=== PATIENT | female | born 1990 | race Caucasian/White ===

== ENCOUNTER → 2018-09-14 | Outpatient (CLI) | payer OTHER ==
--- NOTE | 2018-09-14 08:22 | USB ---
Reason for exam: clinical finding. Physical Findings: Nurse did not find any significant physical abnormalities on exam. US Breast LT Left complete breast ultrasound includes all four quadrants, the retroareolar region and axilla. Finding demonstrates no cystic or solid lesion seen greater than 0.50cm. No suspicious finding. These results were verbally communicated with the patient and result sheet given to the patient on 09/14/18. ASSESSMENT: Negative, BI-RAD 1 RECOMMENDATION: Routine screening mammogram of both breasts at age 40. (or sooner if clinically indicated) Manage patient on a clinical basis.
== END | disposition home or self-care (01) ==
LOC: RADUSWWP 06:49
PROVIDERS: ATTEND Family Medicine
DX: N64.59 Other signs and symptoms in breast (principal)

== ENCOUNTER → 2020-08-11 | Outpatient (CLI) | payer OTHER ==
--- NOTE | 2020-08-11 15:07 | US ---
EXAMINATION TYPE: Ultrasound OB <= 14 wks transvag DATE OF EXAM: 08/11/2020 2:32 PM COMPARISON: NONE CLINICAL HISTORY: 30-year-old female O76 ABSENT HEART SOUNDS. EXAM PERFORMED: Transabdominal (TA) and Transvaginal (TV) FINDINGS: EXAM MEASUREMENTS: GESTATIONAL AGE / DATING Physician Established: Not yet established Dates by LMP: 05/21/2020 (11 weeks/5 days) EDC: 02/25/2021 Dates by First Scan: No previous, this is first scan Dates by Current Scan for: ( 9 weeks/5 days) EDC: 03/11/2021 MATERNAL ANATOMY Uterus: 7.9 x 5.5 x 5.7 cm Right Ovary: 2.4 x 1.8 x 2.1 cm Left Ovary: 2.3 x 1.3 x 1.5 cm Post CDS / Adnexa: wnl Presence of free fluid: no Presence of corpus luteal cyst: no Presence of subchorionic bleed: no GESTATION / SURVEY CRL: 2.8 cm ( 9 weeks/5 days) Heart Rate: No heart tones. IUP: Demise Beta HcG (if available): Not available at this time IMPRESSION: No cardiac activity on real-time scanning, M-mode Doppler, or color Doppler assessment. Size is also 2 weeks smaller/discrepant with dates (11 weeks 5 days by LMP versus 9 weeks 5 days by CRL). Ultrasound findings in keeping with demise. Corroborate with declining beta-hCGs. MTDD
== END | disposition home or self-care (01) ==
LOC: RADUSWWP 14:11
PROVIDERS: ATTEND Obstetrics & Gynecology Obstetrics
DX: O26.841 Uterine size-date discrepancy, first trimester (principal); O36.4XX0 Maternal care for intrauterine death, not applicable or unspecified; Z3A.09 9 weeks gestation of pregnancy
CPT/HCPCS: 76801; 76817

== ENCOUNTER 2020-08-12 14:46 | Day surgery (SDC) | payer OTHER ==
[2020-08-12] MEDS ORDERED: ONDANSETRON 4 MG/2 ML VIAL ONE (15:16)
[2020-08-12] MEDS ORDERED: ONDANSETRON 4 MG/2 ML VIAL IVP ONE (15:19)
[2020-08-12] MEDS ORDERED: LACTATED RINGERS 1,000 ML IV ONE (15:19)
[2020-08-12] MEDS ORDERED: FAMOTIDINE 20 MG/2 ML VIAL IVP ONE (15:20)
[2020-08-12] MEDS ORDERED: DEXAMETHASONE SOD PHOSPHATE 4 MG/ML 1 ML VIAL IVP ONE (15:20)
[2020-08-12 15:26] LABS: Anisocytosis Slight; Basophils # (A) 0.1 k/uL (0-0.2); Basophils % (A) 1 %; Eosinophils % (A) 1 %; HGB 11.5 gm/dL (11.4-16.0); Hypochromasia Slight; Lymphocytes # (A) 1.4 k/uL (1.0-4.8); Lymphocytes % (A) 28 %; MCH 23.5 pg (25.0-35.0); MCV 75.8 fL (80.0-100.0); Mean Platelet Volume 7.2; Microcytosis Slight; Monocytes # (A) 0.9 k/uL (0-1.0); Monocytes % (A) 18 %; Neutrophils # (A) 2.5 k/uL (1.3-7.7); Neutrophils % (A) 49 %; Platelet Count 351 k/uL (150-450); RBC 4.89 m/uL (3.80-5.40); RDW 16.7 % (11.5-15.5)
[2020-08-12] MEDS ORDERED: MIDAZOLAM 2 MG/2 ML VIAL ONE (16:33)
[2020-08-12] MEDS ORDERED: LIDOCAINE 1% INJ 10MG/ML (20 ML MDV) ONE (16:33)
[2020-08-12] MEDS ORDERED: SUCCINYLCHOLINE CHLORIDE 100 MG/5 ML SYR IV ONE (16:33)
[2020-08-12] MEDS ORDERED: fentaNYL (PF) 50 MCG/ML 2 ML AMP ONE (16:33)
[2020-08-12] MEDS ORDERED: PROPOFOL 10 MG/ML 20 ML VIAL IV ONE (16:33)
[2020-08-12] MEDS ORDERED: METHYLERGONOVINE 0.2 MG/ML 1 ML AMP ONE (16:33)
[2020-08-12] MEDS ORDERED: KETOROLAC 15 MG/ML 1 ML VIAL ONE (16:33)
--- NOTE | 2020-08-12 17:06 | P.OP ---
Date of Procedure: 08/12/20 Preoperative Diagnosis: Missed AB Postoperative Diagnosis: Same Procedure(s) Performed: Suction dilation and curettage Anesthesia: THERESE Surgeon: Melina Boyer Estimated Blood Loss (ml): 5 IV fluids (ml): 500 Urine output (ml): 100 Pathology: other (Uterine contents) Condition: stable Disposition: PACU Indications for Procedure: 30-year-old at 10 weeks that presented to the office with complaints of brown/red spotting. Patient did deny cramping at that time. Ultrasound was obtained revealing a 9 week fetus, no heart tones confirmatory ultrasound was not the hospital with the same results. Operative Findings: Moderate amount of products of conception were obtained Description of Procedure: Patient was seen in the preoperative area and informed consent was obtained. Patient was taken back to the operating suite where general anesthesia was obtained without difficulty by the anesthesia department. She was then prepped and draped in normal sterile fashion in the dorsal lithotomy position. A red rubber catheter was used to drain the bladder of clear yellow urine. A weighted speculum was placed in the posterior vaginal vault the anterior lip of the cervix was visualized and grasped with a single-tooth tenaculum. Endocervical canal was then dilated to 18-Luxembourger and an 8 mm curved suction curette was placed through the cervix and toward the intracavity, a moderate amount of products of conception were obtained. A second pass was then done, gentle sharp curettage was performed to ensure the uterus was empty of all products of conception. One more additional pass with the suction curet was completed. The single tooth tenaculum was taken off of the anterior lip of the cervix Ewas appreciated. Minimal bleeding was noted from the uterus at this time. HER noted to be correct 2 at the end of the procedure, patient tolerated procedure well and was taken to the recovery room awake in stable condition.
[2020-08-12 17:25] VITALS: TEMP 97.1
[2020-08-12 17:32] VITALS: RESP 16
[2020-08-12 18:35] VITALS: BP 122/83; PULSE 81
== END 2020-08-12 18:46 | disposition home or self-care (01) ==
LOC: OR 14:46
PROVIDERS: ATTEND Obstetrics & Gynecology Obstetrics
DX: O02.1 Missed abortion (principal); O99.611 Diseases of the digestive system complicating pregnancy, first trimester; K21.9 Gastro-esophageal reflux disease without esophagitis; O99.281 Endocrine, nutritional and metabolic diseases complicating pregnancy, first trimester; E03.9 Hypothyroidism, unspecified; O99.511 Diseases of the respiratory system complicating pregnancy, first trimester; J30.2 Other seasonal allergic rhinitis; Z3A.10 10 weeks gestation of pregnancy; Z79.82 Long term (current) use of aspirin; Z79.890 Hormone replacement therapy; Z79.899 Other long term (current) drug therapy; Z98.890 Other specified postprocedural states; Z91.89 Other specified personal risk factors, not elsewhere classified; Z82.49 Family history of ischemic heart disease and other diseases of the circulatory system; Z83.3 Family history of diabetes mellitus; Z83.52 Family history of ear disorders; Z83.42 Family history of familial hypercholesterolemia
CPT/HCPCS: 59820; 86900; 86901; 88305; 85025; 86850; J2250; J1100; J2210; J2405; J2001; J3010; J1885; J0330; J2704

== ENCOUNTER 2021-08-12 06:07 | Inpatient (IN) | payer OTHER, BC ==
[2021-08-12] MEDS ORDERED: CARBOPROST TROMETHAMINE 250 MCG/ML 1 ML AMP IM PRN (06:25)
[2021-08-12] MEDS ORDERED: OXYTOCIN 10 UNIT/ML 1 ML VIAL IM PRN (06:25)
[2021-08-12] MEDS ORDERED: LIDOCAINE 0.5% (PF) 5 MG/ML (50 ML SDV) SQ PRN (06:25)
[2021-08-12] MEDS ORDERED: TERBUTALINE 1 MG/ML VIAL SQ PRN (06:25)
[2021-08-12] MEDS ORDERED: METHYLERGONOVINE 0.2 MG/ML 1 ML AMP IM PRN (06:25)
[2021-08-12] MEDS ORDERED: OXYTOCIN 30 UNITS/500 ML NS 30 UNIT in SALINE 1 500ML.BAG IV SCH ×2 (06:30→13:30)
[2021-08-12] MEDS: LACTATED RINGERS 1,000 ML IV SCH ×3 (06:35→10:09)
[2021-08-12 06:52] LABS: Anisocytosis Slight; Basophils % (A) 0 %; Eosinophils # (A) 0.2 k/uL (0-0.7); Eosinophils % (A) 1 %; HCT 37.3 % (34.0-46.0); HGB 12.6 gm/dL (11.4-16.0); Lymphocytes # (A) 1.8 k/uL (1.0-4.8); Lymphocytes % (A) 15 %; MCH 29.8 pg (25.0-35.0); MCHC 33.9 g/dL (31.0-37.0); Mean Platelet Volume 8.1; Monocytes # (A) 0.8 k/uL (0-1.0); Monocytes % (A) 7 %; Neutrophils # (A) 8.7 k/uL (1.3-7.7); Neutrophils % (A) 75 %; Platelet Count 270 k/uL (150-450); RBC 4.24 m/uL (3.80-5.40); RDW 18.2 % (11.5-15.5); WBC 11.7 k/uL (3.8-10.6)
[2021-08-12] MEDS ORDERED: BUTORPHANOL 1 MG/ML 1 ML VIAL IV PRN (08:42)
[2021-08-12] MEDS ORDERED: SODIUM CHLORIDE 0.9% 100 ML BAG ONE (09:35)
[2021-08-12] MEDS ORDERED: fentaNYL (PF) 50 MCG/ML 5 ML AMP ONE (09:35)
[2021-08-12] MEDS ORDERED: ROPIVACAINE 5MG/ML 20ML VIAL ONE (09:35)
[2021-08-12] MEDS ORDERED: ROPIVACAINE 100 MG, fentaNYL (PF). 200 MCG in SODIUM CHLORIDE 0.9% 76 ML EPIDURAL ONE (11:01)
[2021-08-12] MEDS ORDERED: ZOLPIDEM 5 MG TAB PO PRN (13:16)
[2021-08-12] MEDS ORDERED: diphenhydrAMINE 50 MG/ML 1 ML VIAL IVP PRN ×2 (13:16)
[2021-08-12] MEDS ORDERED: BENZOCAINE/MENTHOL SPRAY 1 GM/SPRAY AEROSOL TOPICAL PRN (13:16)
[2021-08-12] MEDS ORDERED: ACETAMINOPHEN TAB 325 MG TAB PO PRN (13:16)
[2021-08-12] MEDS ORDERED: HYDROCORTISONE 2.5% RECTAL CREAM 30 GM TUBE RECTAL PRN (13:16)
[2021-08-12] MEDS ORDERED: LANOLIN CREAM 5 GM TUBE TOPICAL PRN (13:16)
[2021-08-12] MEDS ORDERED: diphenhydrAMINE 25 MG CAP PO PRN (13:16)
[2021-08-12] MEDS ORDERED: SIMETHICONE 80 MG CHEWABLE PO PRN (13:16)
[2021-08-12] MEDS ORDERED: diphenhydrAMINE 50 MG CAP PO PRN (13:16)
--- NOTE | 2021-08-12 13:20 | P.PROBDLV ---
Vaginal Delivery Note - . Vaginal Delivery Note: This is a 31-year-old 1 para 0 that presented at 39-6/7 weeks for induction of labor. Patient did note contractions started around 3 AM, uncomfortable in nature. Patient was noted be 270 m in the office yesterday, was 4 cm on presentation this a.m. Patient did request epidural placement after amniotomy was attempted, very scant fluid was appreciated. Minimal fluid was appreciated throughout the labor process. Patient quickly progressed to complete began pushing and had a normal spontaneous vaginal delivery of a viable female . weight of, 6lbs -6oz, at 12:37 Apgars of 8-9 at one and 5 minutes respectively. After two-minute delayed the umbilical cord was doubly clamped and cut, was handed to the maternal abdomen. The placenta was then delivered spontaneous intact with three-vessel cord being noted. On inspection the patient's vaginal vault a midline second-degree laceration was appreciated. After instillation of lidocaine this was repaired in the usual fashion with 3-0 Rapide. The uterus is noted to be firm and below the umbilicus. Estimated blood loss 200 mL. Patient and tolerated delivery well and are resting comfortably.
[2021-08-12] MEDS: IBUPROFEN 600 MG TAB PO SCH (17:16)
[2021-08-12] MEDS: SENNOSIDES-DOCUSATE SODIUM 1 EACH TAB PO SCH (20:03)
[2021-08-13] MEDS: IBUPROFEN 600 MG TAB PO SCH ×4 (01:09→15:19)
[2021-08-13] MEDS ORDERED: LEVOTHYROXINE 75 MCG TAB PO SCH (06:30)
[2021-08-13] MEDS: SENNOSIDES-DOCUSATE SODIUM 1 EACH TAB PO SCH (07:54)
[2021-08-13 08:13] VITALS: RESP 16; TEMP 97.8
--- NOTE | 2021-08-13 08:49 | P.HPOB ---
History of Present Illness H&P Date: 08/12/21 Chief Complaint: IUP at 39-6/7 weeks, small for gestational age this is a 31-year-old 1 para 0 at 39-6/7 weeks that presents to labor and delivery for induction of labor secondary to small for gestational age. Patient had an ultrasound in the office revealing an estimated weight of 6 lbs. 8 oz., 9th percentile, amniotic fluid index of 9. Patient did admit to occasional contractions at that time and was noted to be 2 cm in the office yesterday. Patient states she woke up with contractions around 3 AM and has been victoriano consistently since then. Patient denied loss of fluid, vaginal bleeding. Patient does note good movement. Patient has been receiving routine care which has been essentially uncomplicated. Review of Systems Constitutional: Denies chills, Denies fatigue, Denies fever Ears, nose, mouth and throat: Denies headache Respiratory: Denies dyspnea Gastrointestinal: Denies nausea, Denies vomiting Genitourinary: Reports Past Medical History Past Medical History: Thyroid Disorder History of Any Multi-Drug Resistant Organisms: None Reported Additional Past Surgical History / Comment(s): hx of D/C 08/12/2020 Past Psychological History: No Psychological Hx Reported Smoking Status: Never smoker Past Alcohol Use History: None Reported Past Drug Use History: None Reported - Past Family History Father Family Medical History: Diabetes Mellitus, Hypertension Medications and Allergies Home Medications Medication Instructions Recorded Confirmed Type Cetirizine HCl [Zyrtec] 10 mg PO DAILY 08/12/20 08/12/21 History Famotidine [Pepcid] 10 mg PO DAILY 08/12/20 08/12/21 History Levothyroxine Sodium [Synthroid] 75 mcg PO DAILY 08/12/20 08/12/21 History Aspirin [[place] Aspirin EC] 81 mg PO DAILY 08/12/21 08/12/21 History Ferrous Sulfate [Feosol] 325 mg PO DAILY 08/12/21 08/12/21 History Allergies Allergy/AdvReac Type Severity Reaction Status Date / Time No Known Allergies Allergy Verified 08/12/21 06:21 Exam Osteopathic Statement: *. No significant issues noted on an osteopathic structural exam other than those noted in the History and Physical/Consult. 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 head is noted to be well applied to the cervix. heart tones returned be category 1 and she is victoriano i rregularly, Pitocin is at 2 milliunits. Results Result Diagrams: 08/12/21 06:30 Abnormal Lab Results - Last 24 Hours (Table) 08/12/21 Range/Units 06:30 WBC 11.7 H (3.8-10.6) k/uL RDW 18.2 H (11.5-15.5) % Neutrophils # 8.7 H (1.3-7.7) k/uL Assessment and Plan (1) Term Current Visit: Yes Status: Acute Code(s): Z34.90 - ENCNTR FOR SUPRVSN OF NORMAL , UNSP, UNSP TRIMESTER SNOMED Code(s): 18720326 (2) SGA (small for gestational age), , affecting care of mother, antepartum Current Visit: Yes Status: Acute Code(s): O36.5990 - MATERN CARE FOR OTH OR SUSP POOR FETL GRTH, UNSP TRI, UNSP SNOMED Code(s): 464107278 Plan: 31-year-old 1 para 0 at 39-6/7 weeks presents for induction of labo r/most likely augmentation given she was victoriano uncomfortable prior to admission. Diamond augmentation of labor is begun per hospital protocol. Epidural is offered and patient will consider. Anticipate spontaneous vaginal delivery later today.
--- NOTE | 2021-08-13 08:54 | P.DS ---
Providers Date of admission: 08/12/21 06:07 Expected date of discharge: 08/13/21 Attending physician: Melina Boyer Primary care physician: Stated None - Discharge Diagnosis(es) (1) Term Current Visit: Yes Status: Acute (2) SGA (small for gestational age), , affecting care of mother, antepartum Current Visit: Yes Status: Acute (3) Status post normal vaginal delivery Current Visit: Yes Status: Acute (4) Second degree perineal laceration Current Visit: Yes Status: Acute Hospital Course: this is a 31-year-old 1 now para 1 that presented to labor and delivery on 08/12 for planned induction of labor. Patient did state she started victoriano around 3 AM and they became more uncomfortable as she presented to the hospital. Patient had been receiving routine care which had been essentially uncomplicated. Patient did have an ultrasound the day prior to her induction date revealing a small for gestational age fetus at 6 pounds, amniotic fluid index of 9 slightly low for gestational age. Patient was admitted to labor and delivery and Pitocin induction of labor was begun per hospital protocol. Patient underwent amniotomy and scant fluid was appreciated. Patient quickly became uncomfortable and requested epidural placement. Epidural was placed without difficulty by the anesthesia department. Patient then quickly progressed to complete began pushing and had a normal spontaneous vaginal delivery of a viable female at 1237, weight of 6 lbs. 6 oz., Apgars of 9 and 9 at one and 5 minutes respectively. Patient did sustain a second-degree midline vaginal laceration during delivery this was repaired in the usual fashion with 3-0 Rapide. Patient's post course has been uneventful. On this day #1 she is a billing and voiding without difficulty. She is tolerating a regular diet without nausea or vomiting. She states her pain is well-controlled. She denies concerns and would like discharge home at 24 hours if possible. Patient Condition at Discharge: Good Plan - Discharge Summary New Discharge Prescriptions: No Action Levothyroxine Sodium [Synthroid] 75 mcg PO DAILY Cetirizine HCl [Zyrtec] 10 mg PO DAILY Famotidine [Pepcid] 10 mg PO DAILY Ferrous Sulfate [Feosol] 325 mg PO DAILY Aspirin [[place] Aspirin EC] 81 mg PO DAILY Discharge Medication List Cetirizine HCl [Zyrtec] 10 mg PO DAILY 08/12/20 [History] Famotidine [Pepcid] 10 mg PO DAILY 08/12/20 [History] Levothyroxine Sodium [Synthroid] 75 mcg PO DAILY 08/12/20 [History] Aspirin [[place] Aspirin EC] 81 mg PO DAILY 08/12/21 [History] Ferrous Sulfate [Feosol] 325 mg PO DAILY 08/12/21 [History] Follow up Appointment(s)/Referral(s): Melina Boyer DO [Doctor of Osteopathic Medicine] - 4 Weeks Patient Instructions/Handouts: Vaginal Delivery (DC), Vaginal Delivery (GEN) Discharge Disposition: HOME SELF-CARE
[2021-08-13 17:22] VITALS: BP 139/85; PULSE 82
== END 2021-08-13 17:45 | disposition home or self-care (01) | DRG 807 ==
LOC: 4FBP 06:07
PROVIDERS: ADMIT Obstetrics & Gynecology Obstetrics; ATTEND Obstetrics & Gynecology Obstetrics
PROC: 10E0XZZ Delivery of Products of Conception, External Approach (ICD-10-PCS; principal; 2021-08-12)
PROC: 0KQM0ZZ Repair Perineum Muscle, Open Approach (ICD-10-PCS; 2021-08-12)
PROC: 10907ZC Drainage of Amniotic Fluid, Therapeutic from Products of Conception, Via Natural or Artificial Opening (ICD-10-PCS; 2021-08-12)
PROC: 3E033VJ Introduction of Other Hormone into Peripheral Vein, Percutaneous Approach (ICD-10-PCS; 2021-08-12)
DX: O36.5930 Maternal care for other known or suspected poor fetal growth, third trimester, not applicable or unspecified (principal); Z37.0 Single live birth; O70.1 Second degree perineal laceration during delivery; O99.284 Endocrine, nutritional and metabolic diseases complicating childbirth; E07.9 Disorder of thyroid, unspecified; Z3A.39 39 weeks gestation of pregnancy; Z79.82 Long term (current) use of aspirin; Z79.890 Hormone replacement therapy
CPT/HCPCS: 85025; 86850; 86900; 86901; 88307

== ENCOUNTER 2024-01-03 16:14 | Emergency (ER) | payer BC, OTHER ==
--- NOTE | 2024-01-03 16:41 | ED ---
Fever HPI - General Source: patient, RN notes reviewed Mode of arrival: ambulatory <Wilma Munoz - Last Filed: 01/03/24 16:38> <Christofer Agosto - Last Filed: 01/03/24 20:25> - General Chief Complaint: Fever Stated Complaint: influenza a + Time Seen by Provider: 01/03/24 16:30 - History of Present Illness Initial Comments: Anita notethis is a 33-year-old female presents emergency department chief complaint of fever. States that she was diagnosed yesterday at care with influenza A. Patient states that she has been experiencing shortness of breath in addition to her heart racing. Also complains of headache, rhinorrhea, congestion, dry cough. Denies history of blood clots. (Wilma Munoz) This is a 33-year-old female who was diagnosed with influenza A yesterday. Patient states she is 33 weeks as well. Patient states today she came back because she had bodyaches and a fever and she also felt somewhat short of breath. Patient states she did take Tylenol but just 1 pill at 145. Patient has not taken any Motrin or anything else. Patient denies any chest pain. Patient denies any abdominal pain patient denies any vomiting or diarrhea. Patient states she just started Tamiflu today at 2:00. Patient denies any back pain. Patient denies any swelling to the legs or calf tenderness. (Christofer Agosto) - Related Data Home Medications Medication Instructions Recorded Confirmed Cetirizine HCl [Zyrtec] 10 mg PO DAILY 08/12/20 01/03/24 Aspirin [[place] Aspirin EC] 81 mg PO DAILY 08/12/21 01/03/24 Acetaminophen Tab [Tylenol Tab] 1,000 mg PO Q6HR PRN 01/03/24 01/03/24 Albuterol Inhaler [Ventolin Hfa 1 - 2 puff INHALATION RT-Q6H PRN 01/03/24 01/03/24 Inhaler] Famotidine [Pepcid] 20 mg PO DAILY 01/03/24 01/03/24 Levothyroxine Sodium [Synthroid] 75 mcg PO DAILY 01/03/24 01/03/24 Oseltamivir [Tamiflu] 75 mg PO Q12HR 01/03/24 01/03/24 Vvc-Sglq-Hixgw Acid 1 cap PO DAILY 01/03/24 01/03/24 [-U Capsule (formulary)] diphenhydrAMINE [Benadryl] 25 mg PO BID 01/03/24 01/03/24 Allergies Allergy/AdvReac Type Severity Reaction Status Date / Time No Known Allergies Allergy Verified 01/03/24 17:50 Review of Systems ROS Other: All systems not noted in ROS Statement are negative. <Wilma Munoz - Last Filed: 01/03/24 16:38> ROS Other: All systems not noted in ROS Statement are negative. <Christofer Agosto - Last Filed: 01/03/24 20:25> ROS Statement: Those systems with pertinent positive or pertinent negative responses have been documented in the HPI. Past Medical History Past Medical History: Thyroid Disorder History of Any Multi-Drug Resistant Organisms: None Reported Additional Past Surgical History / Comment(s): hx of D/C 08/12/2020 Past Psychological History: No Psychological Hx Reported Smoking Status: Never smoker Past Alcohol Use History: None Reported Past Drug Use History: None Reported - Past Family History Father Family Medical History: Diabetes Mellitus, Hypertension <Wilma Munoz - Last Filed: 01/03/24 16:38> General Exam <Wilma Munoz - Last Filed: 01/03/24 16:38> <Christofer Agosto - Last Filed: 01/03/24 20:25> - General Exam Comments Initial Comments: Visual Physical Exam Vital signs reviewed General: Well-appearing, nontoxic, no acute distress. Head: Normocephalic, atraumatic Eyes: PERRLA, EOMI ENT: Airway patent Chest: Nonlabored breathing Skin: No visual rash, normal skin tone Neuro: Alert and oriented 3 Musculoskeletal: No gross abnormalities (Stieler,Wilma) GENERAL: Patient is well-developed and well-nourished. Patient is nontoxic and well- hydrated and is in mild distress. ENT: Neck is soft and supple. No significant lymphadenopathy is noted. Oropharynx is clear. Moist mucous membranes. Neck has full range of motion without eliciting any pain. EYES: The sclera were anicteric and conjunctiva were pink and moist. Extraocular movements were intact and pupils were equal round and reactive to light. Eyelids were unremarkable. PULMONARY: Unlabored respirations. Good breath sounds bilaterally. No audible rales rhonchi or wheezing was noted. CARDIOVASCULAR: Patient is tachycardic at 120 beats a minute ABDOMEN: Soft and nontender with normal bowel sounds. SKIN: Skin is clear with no lesions or rashes and otherwise unremarkable. NEUROLOGIC: Patient is alert and oriented x3. Cranial nerves II through XII are grossly intact. Motor and sensory are also intact. Normal speech, volume and content. Symmetrical smile. MUSCULOSKELETAL: Normal extremities with adequate strength and full range of motion. LYMPHATICS: No significant lymphadenopathy is noted PSYCHIATRIC: Normal psychiatric evaluation. (Christofer Agosto) Course Vital Signs 01/03/24 01/03/24 01/03/24 16:16 17:11 19:47 Temperature 100.8 F H 102.3 F H 98.5 F Pulse Rate 133 H 104 H Respiratory 24 18 Rate Blood Pressure 127/84 118/67 O2 Sat by Pulse 97 98 Oximetry Medical Decision Making <Wilma Munoz - Last Filed: 01/03/24 16:38> <Christofer Agosto - Last Filed: 01/03/24 20:25> - Medical Decision Making I completed the quick note portion of this chart signed Wilma Munoz PA-C (Wilma Munoz) Was pt. sent in by a medical professional or institution ([facility], STUDENT SUPPORT ADVISOR, urgent care, hospital, or fci...) When possible be specific @ -No Did you speak to anyone other than the patient for history (EMS, parent, family, police, friend...)? What history was obtained from this source @ -No Did you review nursing and triage notes (agree or disagree)? Why? @ -I reviewed and agree with nursing and triage notes Were old charts reviewed (outside hosp., previous admission, EMS record, old EKG, old radiological studies, urgent care reports/EKG's, fci records)? Report findings @ -No old charts were reviewed Differential Diagnosis (chest pain, altered mental status, abdominal pain women, abdominal pain men, vaginal bleeding, weakness, fever, dyspnea, syncope, headache, dizziness, GI bleed, back pain, seizure, CVA, palpatations, mental health, musculoskeletal)? @ -Differential Dyspnea: Coronary syndrome, arrhythmia, tamponade, asthma, COPD, pulmonary embolism, pneumonia, pneumothorax, pulmonary effusion, anaphylaxis, diabetic ketoacidosis, flailed chest, pulmonary contusion, diaphragmatic rupture, anemia, neuromuscular, this is not meant to be an all-inclusive list. EKG interpreted by me (3pts min.). @ -As above X-rays interpreted by me (1pt min.). @ -Chest x-ray shows no acute abnormality CT interpreted by me (1pt min.). @ -None done U/S interpreted by me (1pt. min.). @ -None done What testing was considered but not performed or refused? (CT, X-rays, U/S, labs)? Why? @ -None What meds were considered but not given or refused? Why? @ -None Did you discuss the management of the patient with other professionals (professionals i.e. , PA, STUDENT SUPPORT ADVISOR, lab, RT, psych nurse, social science instructor, investor relations specialist, teacher, service officer, medical case manager)? Give summary @ -No Was smoking cessation discussed for >3mins.? @ -No Was critical care preformed (if so, how long)? @ -No Were there social determinants of health that impacted care today? How? (Homelessness, low income, unemployed, alcoholism, drug addiction, transportation, low edu. Level, literacy, decrease access to med. care, [facility], rehab)? @ -No Was there de-escalation of care discussed even if they declined (Discuss DNR or withdrawal of care, Hospice)? DNR status @ -No What co-morbidities impacted this encounter? (DM, HTN, Smoking, COPD, CAD, Cancer, CVA, ARF, Chemo, Hep., AIDS, mental health diagnosis, sleep apnea, morbid obesity)? @ -None Was patient admitted / discharged? Hospital course, mention meds given and route, prescriptions, significant lab abnormalities, going to OR and other pertinent info. @ -Patient was given Tylenol and some fluids while in the emergency department his temperature came down nicely her heart rate came down nicely patient was feeling considerably better. Chest x-ray was normal. Undiagnosed new problem with uncertain prognosis? @ -No Drug Therapy requiring intensive monitoring for toxicity (Heparin, Nitro, Insulin, Cardizem)? @ -No Were any procedures done? @ -No Diagnosis/symptom? @ -Influenza A Acute, or Chronic, or Acute on Chronic? @ -Acute Uncomplicated (without systemic symptoms) or Complicated (systemic symptoms)? @ -Complicated Side effects of treatment? @ -No Exacerbation, Progression, or Severe Exacerbation? @ -No Poses a threat to life or bodily function? How? (Chest pain, [place], [place], pneumonia, PE, COPD, DKA, ARF, appy, cholecystitis, CVA, Diverticulitis, Homicidal, Suicidal, threat to staff... and all critical care pts) @ -No (Christofer Agosto) Disposition <Wilma Munoz - Last Filed: 01/03/24 16:38> Is patient prescribed a controlled substance at d/c from ED?: No Time of Disposition: 20:24 <Christofer Agosto - Last Filed: 01/03/24 20:25> Clinical Impression: Influenza Disposition: HOME SELF-CARE Condition: Good Instructions (If sedation given, give patient instructions): Influenza (ED) Additional Instructions: Patient should return to emergency department any increased difficulty breathing or any new symptoms. Patient should continue taking her Tamiflu as prescribed. Patient should take Tylenol every 4 hours as needed for fever. Patient should keep well-hydrated. Referrals: Cachorro Gallego DO [Primary Care Provider] - 1-2 days
[2024-01-03] MEDS: ACETAMINOPHEN TAB 500 MG TAB PO STA (17:55)
[2024-01-03] MEDS: SODIUM CHLORIDE 0.9% 1,000 ML IV ONE (18:02)
[2024-01-03 20:25] VITALS: BP 118/67; PULSE 104; RESP 18; TEMP 98.5
--- NOTE | 2024-01-03 20:27 | XR ---
EXAM: XR chest 1V portable CLINICAL INDICATION:Female, 33 years old with history of Short of breath; [facility] COMPARISON: None. TECHNIQUE: Chest single view. FINDINGS: Lines/tubes/devices: None. Cardiomediastinum: Exam is limited by patient body habitus. Cardiac silhouette appears normal in size. Unremarkable mediastinal silhouette. Vasculature: No increased pulmonary vasculature. Lungs/pleura: Hazy opacity over the lung bases likely from overlying soft tissue attenuation. No consolidation, sizeable effusion, or visible pneumothorax. Bones/soft tissues: Bony thorax appears grossly intact as seen. Regional soft tissues appear unremarkable. Other: Mildly gas-filled viscus in the left upper quadrant. No subdiaphragmatic free air suggested. IMPRESSION: No acute cardiopulmonary findings.
== END 2024-01-03 20:37 | disposition home or self-care (01) ==
LOC: EC 16:14
DX: O99.513 Diseases of the respiratory system complicating pregnancy, third trimester (principal); J10.1 Influenza due to other identified influenza virus with other respiratory manifestations; Z3A.33 33 weeks gestation of pregnancy
CPT/HCPCS: 71045; 96360; 96361; 99283